=== PATIENT | male | born 1980 | race Caucasian/White ===

== ENCOUNTER 2023-11-17 13:13 | Emergency (ER) | payer OTHER, SELFPAY ==
--- NOTE | ~2023-11-17 | MR_ITS ---
EXAMINATION: MR LUMBAR SPINE WITHOUT AND WITH CONTRAST CLINICAL INFORMATION: Back pain. Left lower extremity weakness. COMPARISON: None available. TECHNIQUE: Multiplanar, multisequence imaging was obtained. Intravenous contrast: Gadavist 10 mL. FINDINGS: VERTEBRAL BODIES AND PARASPINAL STRUCTURES: There is a mild leftward curvature of the lumbar spine. No compression fractures are seen. There is a mild retrosubluxation and severe disc space narrowing, with chronic endplate changes at the L4-L5 level. Degenerative Schmorl's nodes are visible at multiple levels. There is a mild loss of disc height at the L2-L3 and L3-L4 levels. The paraspinal soft tissues are unremarkable. The right kidney is mildly atrophic with regions of cortical volume loss, possibly due to chronic reflux disease. The paraspinal soft tissues are unremarkable. CONUS MEDULLARIS AND CAUDA EQUINE: The distal cord, conus tip, and cauda equina nerve roots are normal. No pathologic intradural enhancement is seen. SPINAL LEVELS: L1-L2: Very mild disc bulge without central canal stenosis or foraminal encroachment. L2-L3: Mild generalized disc bulge and loss of disc height with endplate Schmorl's nodes. Mild facet arthropathy. No central canal stenosis or foraminal narrowing. L3-L4: Posterior subluxation and generalized disc bulge with mild facet arthropathy. No central canal stenosis. Bulging disc mildly encroaches upon the right neural foramen contacting the exiting right L3 nerve root. Left foraminal disc extrusion severely compresses the exiting left L3 nerve root. There is mild enhancement around the extruded disc as well. L4-L5: Severe disc space narrowing with chronic endplate changes and a retrosubluxation. Significant loss of disc height and generalized disc bulge with hypertrophic facet arthropathy. No central canal stenosis. [id number] bilateral foraminal narrowing. L5-S1: Mild loss of disc height and shallow, broad-based left subarticular zone disc protrusion without nerve root impingement. No central canal stenosis or foraminal narrowing. MR/MR lumbar spine wo/w con IMPRESSION: 1. Left foraminal disc extrusion at the L3-L4 level, severely compressing the left L3 nerve root. Bulging disc contacts the exiting right L3 nerve root as well. 2. Severe chronic degenerative disc disease at the L4-L5 level, without central canal stenosis. Mild leftward lumbar spinal curvature. 3. Shallow, broad-based left subarticular zone disc protrusion at L5-S1, without nerve root impingement.
--- NOTE | 2023-11-17 13:47 | ED_ITS ---
HPI - Back Pain/Injury General Chief Complaint: Back Pain/Injury Stated Complaint: Back pain, numbness L leg Time Seen by Provider: 11/17/23 14:09 History of Present Illness HPI Narrative: See additional note from same day Related Data Previous Rx's Medication Instructions Recorded cyclobenzaprine 10 mg tablet 10 mg PO BEDTIME PRN muscle spasm 11/17/23 7 days #7 tabs naproxen 500 mg tablet 500 mg PO BID PRN pain 7 days #14 11/17/23 tabs oxycodone 5 mg capsule 5 mg PO Q8H PRN pain 3 days #9 caps 11/17/23 prednisone 20 mg tablet 40 mg (2 x 20 mg) PO DAILY 5 days 11/17/23 #10 tabs Allergies Allergy/AdvReac Type Severity Reaction Status Date / Time Sulfa (Sulfonamide Allergy Unknown Verified 11/17/23 13:48 Antibiotics) Physical Exam 2 Vital Signs: Vital Signs: Last Vital Signs Temp 98.8 F 11/17/23 20:32 Pulse 96 11/17/23 20:32 Resp 16 11/17/23 20:32 BP 118/72 11/17/23 20:32 Pulse Ox 94 11/17/23 20:32 O2 Del Method Room Air 11/17/23 20:32 BMI result Body Mass Index 25.3 Course Course Course Narrative: This is an RME: Additional HPI, ROS, PE not included below will be deferred to primary provider. Patient is a 43-year-old male who presents emergency department for evaluation of back pain, ongoing for 10 days, reports at ER [facility] from the day of onset. Reports improvement in pain but having left foot weakness, numbness in left leg, into the groin and buttocks. States having difficulty knowing when he has to use the bathroom, but denies incontinence. States he was told to come to ED if any of these symptoms occured. No precipitating injury. Took motrin and 7 day course of prednisone. Ambulatory with a steady gait. Placed in waiting room pending bed availability for appropriate assessment and disposition Medications Administered Discontinued Medications Generic Name Dose Route Start Last Admin Trade Name Freq PRN Reason Stop Dose Admin Cyclobenzaprine HCl 10 mg 11/17/23 14:48 11/17/23 15:01 Cyclobenzaprine Hcl 10 Mg Tablet PO 11/17/23 14:49 10 mg ONCE ONE Administration Gadobutrol 10 ml 11/17/23 16:47 11/17/23 16:47 Gadobutrol 10 Ml Vial IVPUSH 11/17/23 16:48 10 ml ONCE ONE Administration Ketorolac Tromethamine 30 mg 11/17/23 14:48 11/17/23 15:01 Ketorolac Tromethamine 30 Mg/Ml Vial IVPUSH 11/17/23 14:49 30 mg ONCE ONE Administration Lorazepam 2 mg 11/17/23 15:59 11/17/23 16:19 Lorazepam 2 Mg/Ml Vial IVPUSH 11/17/23 16:00 2 mg ONCE ONE Administration Methylprednisolone Sodium Succinate 125 mg 11/17/23 14:48 11/17/23 15:01 Methylprednisolone Sod Succ 125 Mg/2 Ml Vial IVPUSH 11/17/23 14:49 125 mg ONCE ONE Administration Medical Decision Making Lab Data 11/17/23 14:55 11/17/23 14:55 Labs: Lab Results 11/17/23 Range/Units 14:55 WBC 9.6 (4.8-10.8) X10*3/uL RBC 5.62 (4.60-5.80) X10*6/uL Hgb 16.2 (14.0-18.0) g/dl Hct 46.6 (42.0-52.0) % MCV 82.9 (80.0-98.0) fL MCH 28.8 (27.0-33.0) pg MCHC 34.8 (31.0-36.0) g/dl RDW 13.6 (11.0-16.0) % Plt Count 221 (160-400) X10*3/uL MPV 10.1 (9.4-12.4) fL Immature Gran % (Auto) 0.3 (0.0-0.4) % Neut % (Auto) 72.3 (45-73) % Lymph % (Auto) 19.7 L (20-40) % [place] % (Auto) 6.3 (2-11) % Eos % (Auto) 1.0 (0-4) % Baso % (Auto) 0.4 (0-2) % Lymph # (Auto) 1.9 (1.2-4.9) X10*3/uL [place] # (Auto) 0.6 (0.1-1.2) X10*3/uL Eos # (Auto) 0.1 (0.0-0.4) X10*3/uL Baso # (Auto) 0.0 (0.0-0.2) X10*3/uL Abs Immat Gran (auto) 0.03 (0.00-0.03) X10*3/uL Absolute Neuts (auto) 6.9 (2.0-8.3) x10*3/uL Absolute Nucleated RBC 0.000 (0.0-0.012) X10*3/uL Nucleated RBC % (auto) 0.0 (0.0-0.2) /100WBC ESR 1 (0-15) MM/HR Sodium 140 (135-145) mmol/L Potassium 4.1 (3.3-5.1) mmol/L Chloride 104 (96-108) mmol/L Carbon Dioxide 28 (22-29) mmol/L Anion Gap 12 (12-20) BUN 25 H (9-16) mg/dL Creatinine 0.84 (0.5-1.4) mg/dL Estim Creat Clear Calc 138.3 Estimated GFR > 60 Random Glucose 112 (60-115) mg/dL Calcium 9.2 (8.4-10.2) mg/dL Total Bilirubin 0.6 (0.0-1.0) mg/dL AST 16 (5-37) U/L ALT 24 (0-40) U/L Alkaline Phosphatase 59 (39-117) U/L C-Reactive Protein < 0.10 (< or = 0.50) mg/dL Total Protein 6.7 (6.5-8.0) g/dL Albumin 4.2 (3.5-5.0) g/dL Discharge Plan Discharge Clinical Impression: Lumbar radiculopathy, Bulging lumbar disc Patient Disposition: Home, Self-Care Instructions: Lumbar Radiculopathy (ED) Additional Instructions: you were given a copy of the MRI for follow-up. MRI shows bulging discs and L3 nerve root impingement. return to the ED immediately for any urinary / bowel incontinence, worsening back pain, fever, chills, flank pain, abdominal pain, nausea, vomiting, dysuria, hematuria, paralysis of lower extremities, or any other concerning symptoms. Prescriptions: New prednisone 20 mg tablet 40 mg PO DAILY 5 Days Qty: 10 0RF cyclobenzaprine 10 mg tablet 10 mg PO BEDTIME PRN (Reason: muscle spasm) 7 Days Qty: 7 0RF naproxen 500 mg tablet 500 mg PO BID PRN (Reason: pain) 7 Days Qty: 14 0RF oxycodone 5 mg capsule 5 mg PO Q8H PRN (Reason: pain) 3 Days Qty: 9 0RF Rx Instructions: Partial Fill upon patient request. Referrals: Richard Yan MD, PhD [Physician] - (bulging disc. L3 nerve imingement) Stand Alone Forms: Work/School Release Interventions: ED Discharge Assessment Last Done: 11/17/23 20:32 Discharge Date/Time: 11/17/23 20:34 Print Language: Italian
[2023-11-17 13:48] VITALS: BP 127/66; PULSE 97; RESP 18; TEMP 36.8; O2SAT 98; BMI 25.3
[2023-11-17 14:59] LABS: MANUAL DIFF FLAG NO
[2023-11-17] MEDS: Cyclobenzaprine HCl 10 MG TABLET PO (15:01)
[2023-11-17] MEDS: methylPREDNISolone Sod Succ 125 MG/2 ML VIAL IVPUSH (15:01)
[2023-11-17] MEDS: Ketorolac Tromethamine 30 MG/ML VIAL IVPUSH (15:01)
[2023-11-17 15:02] LABS: Basophils Percent Auto 0.4 % (0-2); Eosinophils Absolute Auto 0.1 X10*3/uL (0.0-0.4); Hematocrit 46.6 % (42.0-52.0); Hemoglobin 16.2 g/dl (14.0-18.0); Imm Gran Abs Auto 0.03 X10*3/uL (0.00-0.03); Imm Gran Pct Auto 0.3 % (0.0-0.4); Lymphocytes Absolute Auto 1.9 X10*3/uL (1.2-4.9); Lymphocytes Percent Auto 19.7 % (20-40); Mean Corpuscular HGB Conc 34.8 g/dl (31.0-36.0); Mean Corpuscular Hemoglobin 28.8 pg (27.0-33.0); Mean Corpuscular Volume 82.9 fL (80.0-98.0); Mean Platelet Volume 10.1 fL (9.4-12.4); Monocytes Absolute Auto 0.6 X10*3/uL (0.1-1.2); Monocytes Percent Auto 6.3 % (2-11); Neutrophils Absolute Auto 6.9 x10*3/uL (2.0-8.3); Neutrophils Percent Auto 72.3 % (45-73); Platelet Count 221 X10*3/uL (160-400); Red Blood Count 5.62 X10*6/uL (4.60-5.80); Red Cell Distribution Width 13.6 % (11.0-16.0); White Blood Count 9.6 X10*3/uL (4.8-10.8)
[2023-11-17 15:17] LABS: Alanine Aminotransferase 24 U/L (0-40); Albumin Level 4.2 g/dL (3.5-5.0); Alkaline Phosphatase 59 U/L (39-117); Anion Gap 12 (12-20); Aspartate Amino Transferase 16 U/L (5-37); Bilirubin Total 0.6 mg/dL (0.0-1.0); Blood Urea Nitrogen 25 mg/dL (9-16); C Reactive Protein < 0.10 mg/dL (< or = 0.50); Calcium 9.2 mg/dL (8.4-10.2); Carbon Dioxide 28 mmol/L (22-29); Chloride 104 mmol/L (96-108); Creatinine Clr Calc Pharmacy 138.3; Estimated Glomerular Filt Rate > 60; Glucose Random 112 mg/dL (60-115); Potassium 4.1 mmol/L (3.3-5.1); Sodium 140 mmol/L (135-145); Total Protein 6.7 g/dL (6.5-8.0)
--- NOTE | 2023-11-17 15:19 | PC.NURSE ---
provider to evaluate patient in room. patient with pain and weakness in left leg. IV established, labs obtained and sent. medicated per the OCT. MRI screening form completed and faxed.
[2023-11-17 15:56] LABS: Erythrocyte Sedimentation Rate 1 MM/HR (0-15)
--- NOTE | 2023-11-17 16:00 | ED_ITS ---
HPI - General Adult General Chief complaint: Back Pain/Injury Stated complaint: Back pain, numbness L leg Time Seen by Provider: 11/17/23 14:09 Source: patient Mode of arrival: ambulatory Limitations: no limitations History of Present Illness HPI narrative: 43-year-old male healthy presents to the ED for worsening back pain with left leg weakness, leg knee numbness, and numbness to testicles and genital area. Patient states also unaware when he has to urinate. Patient states back pain for the past 10 days that started to get worse last night. Patient denies any trauma, fever, chills or history of any IV drug use or HIV hep C. Related Data Previous Rx's Medication Instructions Recorded cyclobenzaprine 10 mg tablet 10 mg PO BEDTIME PRN muscle spasm 11/17/23 7 days #7 tabs naproxen 500 mg tablet 500 mg PO BID PRN pain 7 days #14 11/17/23 tabs oxycodone 5 mg capsule 5 mg PO Q8H PRN pain 3 days #9 caps 11/17/23 prednisone 20 mg tablet 40 mg (2 x 20 mg) PO DAILY 5 days 11/17/23 #10 tabs Allergies Allergy/AdvReac Type Severity Reaction Status Date / Time Sulfa (Sulfonamide Allergy Unknown Verified 11/17/23 13:48 Antibiotics) Review of Systems 2 Review of Systems: Back pain radiating down left leg Yes all other systems are reviewed and are negative PMFSH Social History Social History Advance Directives: No Advance Directives Information Provided: Yes Physical Exam ED Vital Signs: Vital Signs - 24 hr 11/17/23 13:48 11/17/23 17:48 11/17/23 18:47 Temperature 98.2 F 99.4 F 98.8 F Pulse Rate 97 92 96 Respiratory Rate 18 16 16 Blood Pressure 127/66 114/72 118/72 Pulse Oximetry 98 97 94 Oxygen Delivery Method Room Air Room Air Room Air BMI result Body Mass Index 25.3 Const General: cooperative, healthy appearing, comfortable, no acute distress, well developed, alert, awake and Physically active Orientation/consciousness: oriented to person, oriented to place, oriented to time and patient oriented x3 HENMT Head: Yes normal to inspection, Yes No palpable skull fracture present, Yes normocephalic, Yes atraumatic and No abrasion Eyes General: appearance normal, both eyes and all related structures Neck Neck: Yes normal visual inspection, Yes full ROM, Yes no lymphadenopathy, Yes no meningeal signs, Yes trachea midline, Yes supple, No anterior neck swelling and No tender Chest Chest palpation & inspection: normal inspection of the chest and normal palpation of entire chest wall Resp Effort & Inspection: normal respiratory effort and able to speak in complete sentences Auscultation: clear to auscultation bilaterally Cardio Jugular venous distension: no JVD GI Inspection: Yes normal to inspection Palpation (GI): Soft to palpation, not firm, nontender, no guarding and not rigid Back/Spine/Pelvis Other: positive for significant decreased/ weak rectal tone. Positive for some saddle anesthesia. Positive straight leg test and left leg weakness. Back: back tenderness (lumbar spine tenderness) Skin General skin exam: no rashes or lesions noted, elasticity normal and turgor normal Neuro General: oriented to person, oriented to place, oriented to time, patient oriented x3, gait normal, tone normal, moves all extremities, Normal light touch and pain sensation, no meningeal signs, no focal motor deficits, CN's II-XI intact bilaterally and normal sensation to monofilament Extrem General: Yes normal to inspection, Yes full ROM and Yes capillary refill normal Psych Appearance: grossly normal, well kempt and not disheveled Course Reevaluation(s) Reevaluation #1: x-ray results from [facility] on November 07 Medications Administered Discontinued Medications Generic Name Dose Route Start Last Admin Trade Name Freq PRN Reason Stop Dose Admin Cyclobenzaprine HCl 10 mg 11/17/23 14:48 11/17/23 15:01 Cyclobenzaprine Hcl 10 Mg Tablet PO 11/17/23 14:49 10 mg ONCE ONE Administration Gadobutrol 10 ml 11/17/23 16:47 11/17/23 16:47 Gadobutrol 10 Ml Vial IVPUSH 11/17/23 16:48 10 ml ONCE ONE Administration Ketorolac Tromethamine 30 mg 11/17/23 14:48 11/17/23 15:01 Ketorolac Tromethamine 30 Mg/Ml Vial IVPUSH 11/17/23 14:49 30 mg ONCE ONE Administration Lorazepam 2 mg 11/17/23 15:59 11/17/23 16:19 Lorazepam 2 Mg/Ml Vial IVPUSH 11/17/23 16:00 2 mg ONCE ONE Administration Methylprednisolone Sodium Succinate 125 mg 11/17/23 14:48 11/17/23 15:01 Methylprednisolone Sod Succ 125 Mg/2 Ml Vial IVPUSH 11/17/23 14:49 125 mg ONCE ONE Administration Medical Decision Making Medical Decision Making [facility] Narrative: 43-year-old presents to ED for back pain radiating down left leg with weakness numbness left lower extremity. Decreased rectal tone on exam with saddle anesthesia. Positive straight left leg test with weakness. Due to this MRI was ordered to rule out epidural abscess versus cauda equinus syndrome. Patient ordered Toradol, Solu-Medrol, 16:00. fiberline supervisor informed the patient can not stay still due to claustrophobia Ativan 2 mg ord 7:48pm: MRI negative for cauda equina or epidural abscess. MRI shows L3 nerve impingement with disc bulge herniation. Patient given copy of MRI and will give be given information for spinal surgeon surgeon. patient explained worrisome signs informed to return to the ED for has them. Differential Diagnosis Differential Diagnoses: The differential diagnosis associated with the presentation includes (epidural abscess, caudina equina) Admission/Observation Consideration of admission/observation: Escalation of care including admission/observation considered Lab Data [facility] Lab Attestation statement: I reviewed the patient's lab results. 11/17/23 14:55 11/17/23 14:55 Labs: Lab Results 11/17/23 Range/Units 14:55 WBC 9.6 (4.8-10.8) X10*3/uL RBC 5.62 (4.60-5.80) X10*6/uL Hgb 16.2 (14.0-18.0) g/dl Hct 46.6 (42.0-52.0) % MCV 82.9 (80.0-98.0) fL MCH 28.8 (27.0-33.0) pg MCHC 34.8 (31.0-36.0) g/dl RDW 13.6 (11.0-16.0) % Plt Count 221 (160-400) X10*3/uL MPV 10.1 (9.4-12.4) fL Immature Gran % (Auto) 0.3 (0.0-0.4) % Neut % (Auto) 72.3 (45-73) % Lymph % (Auto) 19.7 L (20-40) % [place] % (Auto) 6.3 (2-11) % Eos % (Auto) 1.0 (0-4) % Baso % (Auto) 0.4 (0-2) % Lymph # (Auto) 1.9 (1.2-4.9) X10*3/uL [place] # (Auto) 0.6 (0.1-1.2) X10*3/uL Eos # (Auto) 0.1 (0.0-0.4) X10*3/uL Baso # (Auto) 0.0 (0.0-0.2) X10*3/uL Abs Immat Gran (auto) 0.03 (0.00-0.03) X10*3/uL Absolute Neuts (auto) 6.9 (2.0-8.3) x10*3/uL Absolute Nucleated RBC 0.000 (0.0-0.012) X10*3/uL Nucleated RBC % (auto) 0.0 (0.0-0.2) /100WBC ESR 1 (0-15) MM/HR Sodium 140 (135-145) mmol/L Potassium 4.1 (3.3-5.1) mmol/L Chloride 104 (96-108) mmol/L Carbon Dioxide 28 (22-29) mmol/L Anion Gap 12 (12-20) BUN 25 H (9-16) mg/dL Creatinine 0.84 (0.5-1.4) mg/dL Estim Creat Clear Calc 138.3 Estimated GFR > 60 Random Glucose 112 (60-115) mg/dL Calcium 9.2 (8.4-10.2) mg/dL Total Bilirubin 0.6 (0.0-1.0) mg/dL AST 16 (5-37) U/L ALT 24 (0-40) U/L Alkaline Phosphatase 59 (39-117) U/L C-Reactive Protein < 0.10 (< or = 0.50) mg/dL Total Protein 6.7 (6.5-8.0) g/dL Albumin 4.2 (3.5-5.0) g/dL Independent Interpretation Interpretation: MRI [address] [address] Magnetic Resonance Report Signed Patient: Samuel Mi MR#: [id number] : 1980 Acct:[id number] Age/Sex: 43 / M ADM Date: 11/17/23 Loc: HO.ED Attending Dr: Ordering Physician: Jd Umana Date of Service: 11/17/23 Procedure(s): MR lumbar spine wo/w con Accession Number(s): [id number] cc: Jd Umana; Tres Mcdaniels MD~ EXAMINATION: MR LUMBAR SPINE WITHOUT AND WITH CONTRAST CLINICAL INFORMATION: Back pain. Left lower extremity weakness. COMPARISON: None available. TECHNIQUE: Multiplanar, multisequence imaging was obtained. Intravenous contrast: Gadavist 10 mL. FINDINGS: VERTEBRAL BODIES AND PARASPINAL STRUCTURES: There is a mild leftward curvature of the lumbar spine. No compression fractures are seen. There is a mild retrosubluxation and severe disc space narrowing, with chronic endplate changes at the L4-L5 level. Degenerative Schmorl's nodes are visible at multiple levels. There is a mild loss of disc height at the L2-L3 and L3-L4 levels. The paraspinal soft tissues are unremarkable. The right kidney is mildly atrophic with regions of cortical volume loss, possibly due to chronic reflux disease. The paraspinal soft tissues are unremarkable. CONUS MEDULLARIS AND CAUDA EQUINE: The distal cord, conus tip, and cauda equina nerve roots are normal. No pathologic intradural enhancement is seen. SPINAL LEVELS: L1-L2: Very mild disc bulge without central canal stenosis or foraminal encroachment. L2-L3: Mild generalized disc bulge and loss of disc height with endplate Schmorl's nodes. Mild facet arthropathy. No central canal stenosis or foraminal narrowing. L3-L4: Posterior subluxation and generalized disc bulge with mild facet arthropathy. No central canal stenosis. Bulging disc mildly encroaches upon the right neural foramen contacting the exiting right L3 nerve root. Left foraminal disc extrusion severely compresses the exiting left L3 nerve root. There is mild enhancement around the extruded disc as well. L4-L5: Severe disc space narrowing with chronic endplate changes and a retrosubluxation. Significant loss of disc height and generalized disc bulge with hypertrophic facet arthropathy. No central canal stenosis. [id number] bilateral foraminal narrowing. L5-S1: Mild loss of disc height and shallow, broad-based left subarticular zone disc protrusion without nerve root impingement. No central canal stenosis or foraminal narrowing. MR/MR lumbar spine wo/w con IMPRESSION: 1. Left foraminal disc extrusion at the L3-L4 level, severely compressing the left L3 nerve root. Bulging disc contacts the exiting right L3 nerve root as well. 2. Severe chronic degenerative disc disease at the L4-L5 level, without central canal stenosis. Mild leftward lumbar spinal curvature. 3. Shallow, broad-based left subarticular zone disc protrusion at L5-S1, without nerve root impingement. Dictated By: LUCINDA VASQUEZ MD Signed By: <Electronically signed by LUCINDA VASQUEZ MD in OV> 11/17/23 1810 DD/ 1710 TD/TT: Oracle Technical Architect: MARYANN Radiology Impression Discussion of test interpretation with radiology: I have reviewed the radiologist's reading. Independent Historian Clinical information obtained from an independent historian. History obtained from or confirmed by: Spouse and Other (patient) External Record Review External record reviewed: Other (prior visits) Prescription Management I considered prescription management with: Pain Medication Critical Care Time Critical Care Time Critical Care Time: Yes Total Critical Care Time: 60 Attestation: Back pain with left leg weakness, and decreased rectal tone. MRI ordered and ativan, solumedrol, and toradol Discharge Plan Discharge Clinical Impression: Lumbar radiculopathy, Bulging lumbar disc Patient Disposition: Home, Self-Care Instructions: Lumbar Radiculopathy (ED) Additional Instructions: you were given a copy of the MRI for follow-up. MRI shows bulging discs and L3 nerve root impingement. return to the ED immediately for any urinary / bowel incontinence, worsening back pain, fever, chills, flank pain, abdominal pain, nausea, vomiting, dysuria, hematuria, paralysis of lower extremities, or any other concerning symptoms. Prescriptions: New prednisone 20 mg tablet 40 mg PO DAILY 5 Days Qty: 10 0RF cyclobenzaprine 10 mg tablet 10 mg PO BEDTIME PRN (Reason: muscle spasm) 7 Days Qty: 7 0RF naproxen 500 mg tablet 500 mg PO BID PRN (Reason: pain) 7 Days Qty: 14 0RF oxycodone 5 mg capsule 5 mg PO Q8H PRN (Reason: pain) 3 Days Qty: 9 0RF Rx Instructions: Partial Fill upon patient request. Referrals: Richard Yan MD, PhD [Physician] - (bulging disc. L3 nerve imingement) Stand Alone Forms: Work/School Release Interventions: ED Discharge Assessment Last Done: 11/17/23 20:32 Discharge Date/Time: 11/17/23 20:34 Print Language: Hong Konger
[2023-11-17] MEDS: LORazepam 2 MG/ML VIAL IVPUSH (16:19)
--- NOTE | 2023-11-17 16:34 | PC.NURSE ---
patient medicated per the MAR during MRI for anxiety.
[2023-11-17] MEDS: gadobutroL 10 ML VIAL IVPUSH (16:47)
[2023-11-17 17:48] VITALS: BP 114/72; PULSE 92; RESP 16; TEMP 37.4; O2SAT 97
[2023-11-17 18:47] VITALS: BP 118/72; PULSE 96; RESP 16; TEMP 37.1; O2SAT 94
[2023-11-17 20:32] VITALS: BP 118/72; PULSE 96; RESP 16; TEMP 37.1; O2SAT 94
== END 2023-11-17 20:34 | disposition home or self-care (01) ==
PROVIDERS: Physician Assistant; Emergency Provider Student in an Organized Health Care Education/Training Program; PCP Family Medicine
DX: M51.16 Intervertebral disc disorders with radiculopathy, lumbar region (principal)
CPT/HCPCS: 36415; 72158; 80053; 85025; 85652; 86140; 96374; 96375; 99285; A9585; J1885; J2060; J2930

== ENCOUNTER 2023-11-25 12:59 | Outpatient (AMB) | payer OTHER, SELFPAY ==
--- NOTE | 2023-11-25 13:24 | A.SPINEOV_ITS ---
Intake Intake Visit Reasons: bulging disc Intake Note: Mr. Mi is here today c/o back pain MRI/[facility] [place]. Sponsorship Coordinator Required: No Allergies Sulfa (Sulfonamide Antibiotics) Allergy (Verified 11/25/23 13:25) Unknown Assessment & Plan Assessment & Plan (1) Lumbar disc herniation: Code(s): M51.26 - Other intervertebral disc displacement, lumbar region Plan Dear Dr. London Thank you for referring Mr Mi to our office today. He is a very nice 42-year-old gentleman who presents to the office today for evaluation of acute onset of pain going down into his left leg into his anterior thigh and into his medial calf region which started on November 05. It was an intense severe pain associated with weakness of his leg and numbness of his thigh. He was trialed on different medications like naproxen, cyclobenzaprine as well as prednisone. He ultimately underwent an MRI at [place] showing a herniated disc on the left L3-4 in the foramen compressing the left L3 nerve root. He was sent to see us urgently because of the weakness and numbness. He did undergo an injection at your office last week and the pain has almost completely gone away. His leg even feel stronger now. The numbness however has not gone away. He has no longer taking any of the pain medications because he does not have any significant discomfort. 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 Social hx: Does not smoke, drink or use any recreational drugs, Medications: Flonase Allergies: Sulfa Physical exam: He has about a 4-5 weakness of his left iliopsoas but other than that his quadriceps, tibialis and gastrocnemius strength is normal. His patellar reflexes slightly decreased but not significantly so. Imaging review: There is a lumbar MRI done [facility] showing an acute herniated disc far laterally at L3-4 in the extraforaminal space compressing the left L3 nerve root. Impression: 43-year-old male presents with acute onset of left leg pain with numbness and weakness now appears to be improved after an injection last week. He is feeling significantly better in terms of strength and pain. He still has numbness in his thigh. I reviewed his imaging with him, we went over the MRI done [place] at length. I told him there is a good chance if he is feeling better that this could go away on its own. However, if it does not, I think he would be a good candidate for an extraforaminal diskectomy. We discussed the fact that even if the pain returns, the weakness and numbness may be a permanent defect as a result of the initial disc herniation and the results for that are very unpredictable whether gets better or not with or without surgery. He will call me back in 2 weeks and let me know how things are going. If he starts to back slide, we will expedite surgery for him. Thank you for allowing us to care for your patient. The total time spent with this visit with this patient was 45 minutes reviewing history, physical exam, lumbar imaging review, and implementation of treatment plan or further diagnostic testing Mohinder Yan MD,PhD [facility] Coding Level of Care Code New Pt Level 4 (89856) Diagnoses Lumbar disc herniation M51.26
== END 2023-11-25 14:18 | disposition home or self-care (01) ==
PROVIDERS: PCP Family Medicine; Visit Provider Physician Assistant
DX: M51.26 Other intervertebral disc displacement, lumbar region (principal)
CPT/HCPCS: 99204

== ENCOUNTER → 2023-11-25 12:59 | Outpatient (BNVA) | payer OTHER, SELFPAY | PROVIDERS: PCP Family Medicine; Visit Provider Physician Assistant ==